=== PATIENT | female | born 1975 | race Caucasian/White ===

== ENCOUNTER 2020-03-29 10:30 | Inpatient (IN) | payer OTHER ==
[2020-03-29 12:26] VITALS: BMI 54.1
[2020-03-29] MEDS ORDERED: BISMUTH SUBSALICYLATE 524 MG/30 ML UD PO PRN (13:55)
[2020-03-29] MEDS ORDERED: diazePAM 5 MG TABLET PO PRN (13:55)
[2020-03-29] MEDS ORDERED: ONDANSETRON *ODT* 4 MG TABLET SL PRN (13:55)
[2020-03-29] MEDS ORDERED: METHOCARBAMOL 500 MG TABLET PO PRN (13:55)
[2020-03-29] MEDS ORDERED: MAGNESIUM CITRATE 300 ML BOTTLE PO PRN (13:55)
[2020-03-29] MEDS ORDERED: MAG HYDROX/AL HYDROX/SIMETH 30 ML UNIT-DOSE CUP PO PRN (13:55)
[2020-03-29] MEDS ORDERED: IBUPROFEN 400 MG TABLET (FP) PO PRN (13:55)
[2020-03-29] MEDS ORDERED: MAGNESIUM HYDROX 2400MG/30ML ORAL SUSPENSION 30 ML CUP PO PRN (13:55)
[2020-03-29] MEDS ORDERED: MENTHOL/PHENOL 1 EACH UD MM PRN (13:55)
[2020-03-29] MEDS ORDERED: ACETAMINOPHEN 325 MG TABLET (FP) PO PRN ×2 (13:55)
[2020-03-29] MEDS ORDERED: cloNIDine HCL 0.1 MG TABLET PO PRN (13:55)
[2020-03-29] MEDS ORDERED: NICOTINE POLACRILEX 2 MG GUM BUC PRN (13:55)
[2020-03-29] MEDS ORDERED: METHADONE HCL 10 MG TABLET (FOR DETOX USE ONLY) PO ONE (14:30)
[2020-03-29] MEDS: PRENATAL VITAMINS W/ FOLIC ACID TABLET (FP) PO SCH (15:08)
[2020-03-29] MEDS: hydrOXYzine PAMOATE 25 MG CAPSULE (FP) PO SCH ×2 (15:08→17:21)
[2020-03-29] MEDS: NICOTINE 14 MG/24 HOURS TOPICAL PATCH TD SCH (15:11)
[2020-03-29] MEDS: diazePAM 5 MG TABLET PO SCH ×2 (17:20→22:40)
[2020-03-29] MEDS ORDERED: hydrOXYzine PAMOATE 25 MG CAPSULE (FP) PO PRN (17:24)
[2020-03-29] MEDS ORDERED: THIAMINE HCL 100 MG TABLET (FP) PO SCH (22:00)
[2020-03-29] MEDS ORDERED: MELATONIN 5 MG TABLETS PO SCH ×2 (22:00)
[2020-03-30] MEDS: diazePAM 5 MG TABLET PO SCH ×2 (05:53→10:08)
[2020-03-30 07:37] VITALS: TEMP 97.3
[2020-03-30] MEDS ORDERED: METHADONE HCL 5 MG TABLET (FOR DETOX USE ONLY) ONE (09:04)
[2020-03-30] MEDS ORDERED: METHADONE HCL 10 MG TABLET (FOR DETOX USE ONLY) ONE (09:04)
[2020-03-30] MEDS ORDERED: METHADONE (DETOX) 20 MG, METHADONE (DETOX) 5 MG PO ONE (10:00)
[2020-03-30] MEDS: NICOTINE 14 MG/24 HOURS TOPICAL PATCH TD SCH (10:07)
[2020-03-30] MEDS: PRENATAL VITAMINS W/ FOLIC ACID TABLET (FP) PO SCH (10:07)
[2020-03-30 10:13] VITALS: BP 101/51; PULSE 84
[2020-03-30 12:01] LABS: HEMATOCRIT 38.9 % (32.4-45.2); HEMOGLOBIN 12.7 GM/dL (10.7-15.3); MCH 28.6 pg (25.7-33.7); MCHC 32.8 g/dl (32.0-36.0); MEAN CELL VOLUME 87.4 fl (80-96); MEAN PLT VOLUME 10.3 fl (7.5-11.1); PLATELET COUNT 269 K/MM3 (134-434); POTASSIUM 4.2 mmol/L (3.5-5.1); RBC 4.45 M/mm3 (3.60-5.2); RDW 17.3 % (11.6-15.6); WHITE BLOOD COUNT 7.8 K/mm3 (4.0-10.0)
[2020-03-30 12:04] LABS: ALBUMIN 3.4 g/dl (3.4-5.0); BLOOD UREA NITROGEN 12.3 mg/dL (7-18)
[2020-03-30 12:05] LABS: CALCIUM 8.6 mg/dL (8.5-10.1)
[2020-03-30 12:07] LABS: CREATININE 0.9 mg/dL (0.55-1.3)
[2020-03-30 12:08] LABS: BILIRUBIN,TOTAL 0.6 mg/dL (0.2-1); TOT PROT 7.2 g/dl (6.4-8.2)
[2020-03-31] MEDS ORDERED: diazePAM 5 MG TABLET PO SCH (06:00)
[2020-03-31] MEDS ORDERED: METHADONE HCL 10 MG TABLET (FOR DETOX USE ONLY) PO ONE (10:00)
[2020-04-01] MEDS ORDERED: diazePAM 5 MG TABLET PO SCH (06:00)
[2020-04-01] MEDS ORDERED: METHADONE (DETOX) 10 MG, METHADONE (DETOX) 5 MG PO ONE (10:00)
[2020-04-02] MEDS ORDERED: diazePAM 5 MG TABLET PO ONE (06:00)
[2020-04-02] MEDS ORDERED: METHADONE HCL 10 MG TABLET (FOR DETOX USE ONLY) PO ONE (10:00)
[2020-04-03] MEDS ORDERED: METHADONE HCL 5 MG TABLET (FOR DETOX USE ONLY) PO ONE (06:00)
== END 2020-03-30 12:34 | disposition left against medical advice (07) | DRG 770 ==
LOC: YASAS 10:30 → Y6N 12:49
PROVIDERS: ADMIT Allergy & Immunology; ATTEND Allergy & Immunology
PROC: HZ2ZZZZ Detoxification Services for Substance Abuse Treatment (ICD-10-PCS; principal; 2020-03-29)
DX: F10.230 Alcohol dependence with withdrawal, uncomplicated (principal); F11.23 Opioid dependence with withdrawal; F13.20 Sedative, hypnotic or anxiolytic dependence, uncomplicated; F14.20 Cocaine dependence, uncomplicated; F17.210 Nicotine dependence, cigarettes, uncomplicated; F19.282 Other psychoactive substance dependence with psychoactive substance-induced sleep disorder; F19.280 Other psychoactive substance dependence with psychoactive substance-induced anxiety disorder; F19.24 Other psychoactive substance dependence with psychoactive substance-induced mood disorder; F43.10 Post-traumatic stress disorder, unspecified; F32.9 Major depressive disorder, single episode, unspecified; F41.9 Anxiety disorder, unspecified; E66.01 Morbid (severe) obesity due to excess calories; Z68.43 Body mass index [BMI] 50.0-59.9, adult; Z62.810 Personal history of physical and sexual abuse in childhood; Z91.410 Personal history of adult physical and sexual abuse; Z87.81 Personal history of (healed) traumatic fracture; Z98.890 Other specified postprocedural states; Z90.79 Acquired absence of other genital organ(s)
CPT/HCPCS: 36415; 80053; 81025; 85027; 86780; 93005; 93010; C9803; U0003